=== PATIENT | female | born 1950 | race Caucasian/White ===

== ENCOUNTER → 2018-11-05 10:15 | Outpatient (BNVA) | payer MEDICARE, BC, SELFPAY | PROVIDERS: PCP Nurse Practitioner Family; Referring Provider Family Medicine; Visit Provider Orthopaedic Surgery | DX: M72.9 Fibroblastic disorder, unspecified (principal); E11.9 Type 2 diabetes mellitus without complications | CPT/HCPCS: 99213 ==

== ENCOUNTER 2019-11-19 04:33 | Outpatient (CLI) | payer MEDICARE, BC, SELFPAY ==
--- NOTE | 2019-11-19 07:40 | DI.MAMMO_ITS ---
EXAM: MG MAMMO DIAGNOSTIC UNI CLINICAL HISTORY: L breast lump 3 o'clock, hx breast CA, hx breast ca, N63.0, Z85.3. TECHNIQUE: Craniocaudal and mediolateral oblique Full Field Digital Mammography views with Computer Aided Diagnosis followed by Tomosynthesis. COMPARISON: No exams were available for comparison FINDINGS: Left mammography/Tomosynthesis: The patient is status post mastectomy and left breast reconstruction. Masses/Architectural Distortion: None seen. Microcalcifictions: A 4 mm benign coarse calcification is seen in the left reconstructed breast which corresponds to the palpable abnormality. No suspicious microcalcifications are seen. Skin Thickening/Nipple Retraction: None. IMPRESSION: 1. No evidence of malignancy is noted. 2. The patient is status post mastectomy and left breast reconstruction. 3. The palpable abnormality corresponds to a 4 mm benign calcification in the reconstructed left tam[address]. 4. The findings were discussed with the patient on the date of the examination. BI-RADS Category 1 - Negative Breast Density - Category A - Almost entirely fatty A negative radiographic report should not delay biopsy if a dominant or clinically suspicious mass is present. Up to ten percent of cancers are not identified on mammography. A negative report may reinforce clinical impression. Adenosis and dense breasts may obscure an underlying neoplasm. False positive reports average 6 to 10%. Patient will receive a letter notifying them of these results.
== END 2019-11-19 04:53 ==
PROVIDERS: PCP Nurse Practitioner Family; Visit Provider Nurse Practitioner Family
DX: N63.20 Unspecified lump in the left breast, unspecified quadrant (principal); Z85.3 Personal history of malignant neoplasm of breast
CPT/HCPCS: 77061; 77065; G0279

== ENCOUNTER 2021-10-10 04:15 | Outpatient (CLI) | payer MEDICARE, SELFPAY ==
[2021-10-10 08:36] LABS: Calculated LDL 54 mg/dL (<100); Cholesterol 123 mg/dL (<200); HDL Cholesterol 58 mg/dL (40-60); Triglyceride 55 mg/dL (<150)
[2021-10-10 09:00] LABS: COMMENT (LAB VIEW ONLY) 40.16 mg/dL; Microalb ug/mg Crea 21.7 ug/mg Cr
== END 2021-10-10 04:16 | disposition home or self-care (01) ==
LOC: LBO 04:15
PROVIDERS: PCP Nurse Practitioner Family; Visit Provider Nurse Practitioner Family
DX: E11.9 Type 2 diabetes mellitus without complications (principal); E78.5 Hyperlipidemia, unspecified
CPT/HCPCS: 36415; 80061; 82043; 82570

== ENCOUNTER 2021-11-24 10:18 | Outpatient (CLI) | payer MEDICARE, SELFPAY ==
--- NOTE | 2021-11-24 10:15 | RT.EKG_ITS ---
APPROVED REPORT Exam: Resting ECG Reason for Exam: Shortness of breath Patient Location: O HR:58 bpm ECG Measurements Heart Rate 58 AXIS AL 216 P 62 QRSd 103 QRS 76 QT 416 T 57 QTc 409 Conclusion Sinus rhythm...normal P axis, V-rate 50- 99 Borderline prolonged AL interval...AL >212, V-rate 50- 90 Probable left atrial enlargement...P >50mS, <-0.10mV V1
== END 2021-11-24 10:19 | disposition home or self-care (01) ==
PROVIDERS: PCP Nurse Practitioner Family; Visit Provider Nurse Practitioner Family
DX: R06.02 Shortness of breath (principal)
CPT/HCPCS: 93010

== ENCOUNTER 2021-11-25 01:59 | Outpatient (CLI) | payer MEDICARE, SELFPAY ==
[2021-11-25 09:31] LABS: Abs Immature Grans 0.01 10^3/uL (0.0-0.06); Absolute Basophil Count 0.04 10^3/uL (0.0-0.2); Absolute Eosinophil Count 0.56 10^3/uL (0.0-0.7); Absolute Lymphocyte Count 1.65 10^3/uL (1.2-3.4); Absolute Monocyte Count 0.38 10^3/uL (0.1-0.8); Absolute Neutrophil Count 2.74 10^3/uL (1.2-6.7); Basophils % 0.7; Eosinophils % 10.4; HCT 44.4 % (36.0-46.0); HGB 14.9 g/dL (11.2-15.7); Immature Grans % 0.2; Lymphocytes % 30.7; MCH 29.2 pg (27.0-33.0); MCHC 33.6 % (32.0-36.0); MCV 87 fL (80-95); MPV 10.5 fL (8.0-11.0); Monocytes % 7.1; Neutrophils % 50.9; Platelet Count 165 10^3/uL (130-400); RDW 12.3 % (11.7-14.6); RDW-SD 39.6 fL; WBC 5.38 10^3/uL (4.4-10.8)
[2021-11-25 11:11] LABS: ALT 17 U/L (14-59); AST 19 U/L (15-37); Albumin 3.7 g/dL (3.4-5.0); Alkaline Phosphatase 41 U/L (46-116); Anion Gap 5.4 mmol/L (3-11); BUN 15 mg/dL (7-18); Bilirubin, Total 0.5 mg/dL (0.2-1.0); CO2 29.6 mmol/L (21.0-32.0); CREATININE 0.9 mg/dL (0.55-1.02); Calcium 9.3 mg/dL (8.5-10.1); Chloride 95 mmol/L (98-107); Glucose 164 mg/dL (74-106); Sodium 130 mmol/L (136-145); Total Protein 7.5 g/dL (6.4-8.2)
== END 2021-11-25 02:00 | disposition home or self-care (01) ==
LOC: LBO 01:59
PROVIDERS: PCP Nurse Practitioner Family; Visit Provider Nurse Practitioner Family
DX: R06.09 Other forms of dyspnea (principal); R42 Dizziness and giddiness
CPT/HCPCS: 36415; 80053; 84443; 85025

== ENCOUNTER 2021-12-01 04:10 | Outpatient (CLI) | payer MEDICARE, SELFPAY ==
[2021-12-01 09:09] LABS: Anion Gap 6.7 mmol/L (3-11); BUN 20 mg/dL (7-18); CO2 30.3 mmol/L (21.0-32.0); CREATININE 0.8 mg/dL (0.55-1.02); Calcium 9.5 mg/dL (8.5-10.1); Chloride 100 mmol/L (98-107); Estimated GFR 79.71 (mL/min/1.73m2); Glucose 122 mg/dL (74-106); Potassium 4.4 mmol/L (3.5-5.1); Sodium 137 mmol/L (136-145)
[2021-12-01 18:06] LABS: Osmolality Serum 290 mOsm/kg (275-295)
== END 2021-12-01 04:11 | disposition home or self-care (01) ==
LOC: LBO 04:10
PROVIDERS: PCP Nurse Practitioner Family; Visit Provider Nurse Practitioner Family
DX: E87.1 Hypo-osmolality and hyponatremia (principal)
CPT/HCPCS: 36415; 80048; 83930

== ENCOUNTER 2021-12-02 02:02 | Outpatient (RCR) | payer MEDICARE, SELFPAY ==
--- NOTE | 2021-12-02 09:45 | HOLTER_ITS ---
APPROVED REPORT Conclusion This is a 48-hour Holter monitor ordered for syncope Primary rhythm was sinus with an average heart rate of 68. Minimum was 55, maximum 97 There are very rare ventricular ectopic beats. There was no ventricular tachycardia. There was one 3 beat accelerated idioventricular rhythm There were rare atrial premature beats Several self-limited atrial runs occurred, the longest of these was 6 beats in duration There was no atrial fibrillation, no high-grade AV block, no pauses greater than 3 seconds There were no apparent patient symptoms
== END 2021-12-16 23:59 | disposition home or self-care (01) ==
LOC: RT 02:02
PROVIDERS: PCP Nurse Practitioner Family; Visit Provider Nurse Practitioner Family
DX: I49.8 Other specified cardiac arrhythmias (principal); I25.10 Atherosclerotic heart disease of native coronary artery without angina pectoris; R42 Dizziness and giddiness
CPT/HCPCS: 93227; 93225; 93226

== ENCOUNTER → 2021-12-13 00:52 | Outpatient (CLI) | payer MEDICARE, SELFPAY ==
--- NOTE | 2021-12-13 06:15 | ETT_ITS ---
APPROVED REPORT Exam: Exercise Treadmill Patient Location: Out-Patient Room/Bed: Stress Nurse: Tara Phillips RN Ordering Provider:JACEY GORDON, Contact Number: [phone] BMI: 0 Medical History Medical History: HTN, DM II, HLD, Hypothyroidism, Depression, Anxiety, Asthma, CAD, elevated BMI Cardiac Medications: Rosuvastatin, Pantoprazole, Metformin, Isosorbide mononitrate, Empagliflozin, Du laglutide, Aspirin, Albuterol sulfate, Trulicity, Levothyroxine, Allergies: Shellfish, Codeine, Wheat, Amlodipine, Milk, Dust, Cats Cardiac Risk Factors: HTN, Hyperlipidemia, DM, FHX of CAD, Asthma, CVD Previous Cardiac Procedures: CABG (2017) Pretest Chest Pain Characteristics: No chest pain Exercise History: Physically active Physical Disabilities: None Lung Sounds: Clear to auscultation Heart Sounds: Regular Stress Test Details Test: Exercise stress testing was performed using a Carlos protocol. Rest Stress HR Resting HR Supine: 62 bpm Max Heart Rate (APMHR): 151 bpm Resting HR Standin bpm Target HR (85% APMHR): 128 bpm Max HR Achieved: 92 bpm % of APMHR: 60 Recovery HR: 58 bpm HR response to stress: Blunted HR response to stress Comment: Nondiagnositic; chronotropic incompetence BP Resting BP Supine: 162/70 mmHg Resting BP Standin/66 mmHg Max BP: 168/66 mmHg Recovery BP: 168/66 mmHg BP response to stress: Normal blood pressure response to stress. ECG Resting ECG: Sinus Rhythm, 2nd degree AV block (Mobitz I) Ectopy: None Stress ECnd degree AV block (Mobitz I) ST Change: No significant ST segment changes noted Arrhythmia: rare PVC Recovery ECG: Sinus Rhythm, 2nd degree AV block (Mobitz I) Recovery ST Change: No significant ST segment changes noted Recovery Arrhythmia: PVCs Clinical Reason for Termination: Fatigue Stress Symptoms: General Fatigue, Lightheadedness Exercise duration: 7 min39 sec Highest Stage Reached: Stage 3: 3.4 mph at 14% grade. Exercise capacity: 9.6 METs Krishnamurthy Treadmill Score: 7.7 Rate Pressure Product: [id number] Stress ECG Conclusion 1. Resting electrocardiogram showed first-degree AV block, IVCD, minor ST abnormalities 2. Patient exercised on the Carlos protocol and completed a workload of 9.6 METS 3. Normal blood pressure response to exercise 4. Blunted heart rate response to exercise. The patient developed Mobitz 1 second-degree AV block, s ometimes 2-1, with a peak heart rate achieved of 60% of predicted for age 5. Electrocardiographic portion of the test was nondiagnostic due to inadequate heart rate 6. There were rare PVCs seen Krishnamurthy Treadmill Score is 7.7 which is Low risk. Stress Test Summary STAGE Time (mins) Speed (mph) Grade (%) HR BP SpO2 SYMPTOMS METS Supine 62 162/70 Standing 70 134/66 98 1 3 1.7 10 54 132/62 98 slight lightheadedness 4.5 2 6 2.5 12 63 142/70 no change to lightheadedness 7 1 min recovery 58 144/72 98 mild lightheadedness 3 min recovery 46 168/62 6 min recovery 58 168/66 lightheadedness resolved.
--- NOTE | 2021-12-13 06:30 | DI.RAD_ITS ---
Exam(s) XR CHEST 2V PA LATERAL EXAM: XR CHEST 2V PA LATERAL CLINICAL HISTORY: r/o acute cardiopulm abnormality,dizziness,dyspnea on exertion,r06.09,r42 TECHNIQUE: 2D digital imaging was performed of the chest. Two images were obtained. PA and lateral views were obtained. COMPARISON: No exams were available for comparison FINDINGS: MEDIASTINUM: Normal. HEART: Normal. PULMONARY VASCULATURE: Normal. LUNGS: Clear. PLEURAL SPACE: No pleural effusion or pneumothorax. BONE:Within normal limits for the patient's age. Sternal wires are in place. OTHER FINDINGS:Normal. IMPRESSION: No acute pulmonary findings. DATA REPOSITORY: RADIATION DOSE DELIVERED:
== END ==
PROVIDERS: PCP Nurse Practitioner Family; Visit Provider Nurse Practitioner Family
DX: I25.10 Atherosclerotic heart disease of native coronary artery without angina pectoris (principal); R06.09 Other forms of dyspnea; R42 Dizziness and giddiness
CPT/HCPCS: 93016; 93018; 71046; 93017

== ENCOUNTER → 2021-12-27 01:16 | Outpatient (CLI) | payer MEDICARE, SELFPAY ==
--- NOTE | 2021-12-27 06:30 | DI.NM_ITS ---
APPROVED REPORT Exam: Pharmacologic paired w/ low level exercise Patient Location: Out-Patient Room/Bed: Stress Nurse: Tara Phillips RN Ordering Provider:JACEY EVAN, Contact Number: [phone] BMI: 26.60 Baseline Rhythm: Sinus Rhythm Indications: NON DIAGNOSTIC ETT, WILLIS, CAD Medical History Medical History: Hyponatremia, Dyspespia, HTN, DM II, HLD, Asthma, Depression w/ anxiety, CAD Cardiac Medications: Rosuvastatin, Pantoprazole, Metformin, Isosorbide mononitrate, Empagliflozin, Du loglutide, Aspirin, Albuterol sulfate Allergies: Amlodipine, Milk, Dust, Cats, Codeine, Shellfish, Wheat Cardiac Risk Factors: HTN, Hyperlipidemia, Diabetes (non-insulin), FHX of CAD, Asthma, CVD Previous Cardiac Procedures: CABG (01/21/17) Pretest Chest Pain Characteristics: Patient reports baseline dizziness and shortness of breath. Exercise History: Indeterminate Physical Disabilities: None Lung Sounds: Clear to auscultation Heart Sounds: Regular Stress Test Details Test: Pharmacologic stress was paired with low level exercise. Reason for pharmacologic stress test: concern for patient safety given baseline symptoms. Nuclear Acquisition: Rest Tc-99m/Stress Tc-99m 1 day Rest Isotope: Tc-99m Sestamibi. Dose: 10.2 Date: 12/27/2021 Injection Time: 0930 Stress Isotope: Tc-99m Sestamibi. Dose: 31.5 Date: 12/27/2021 Injection Time: 1115 HR Resting HR Supine: 61 bpm Max Heart Rate (APMHR): 151.303150 bpm Resting HR Standin bpm Target HR (85% APMHR): 128.657573 bpm Max HR Achieved: 84 bpm % of APMHR: 55.63 Recovery HR: 74 bpm BP Resting BP Supine: 138/62 mmHg Resting BP Standin/60 mmHg Max BP: 138/62 mmHg Recovery BP: 132/60 mmHg ECG Resting ECG: Sinus Rhythm Ectopy: None Stress ECnd degree AV block (Mobitz I), Sinus rhythm ST Change: No significant ST segment changes noted Recovery ECnd degree AV block (Mobitz II), Sinus rhythm Clinical Stress Symptoms: Headache,, Dyspnea Rate Pressure Product: [id number] Stress ECG Conclusion 1. Resting electrocardiogram shows sinus rhythm first-degree AV block IVCD minor ST depression 2. Patient underwent testing using a combination of regadenoson and low-level exercise 3. Peak heart rate achieved was 55% of predicted for age 4. 2-1 AV block was noted, most likely Mobitz 1 5. The electrocardiographic portion of the test was nondiagnostic due to inadequate heart rate 6. See MPI report Stress Test Summary STAGE HR BP SpO2 Symptoms NOTES Supine 61 138/62 97 Standing 70 138/60 1 min post Lexiscan injection 79 128/60 3 min post Lexiscan injection 55 130/50 6 min post Lexiscan injection 45 112/48 9 min post Lexiscan injection 74 132/60 MPI Conclusion Normal myocardial perfusion without evidence ischemia or prior infarction EF 73%, normal wall motion Radiologist Interpretation Radiologist Interpretation by: Damian Gaines MD Interpretation Date/Time: 12/27/2021 16:58:52
[2021-12-27] MEDS: Regadenoson 0.4 MG/5 ML SYR IVP (11:05)
== END ==
PROVIDERS: PCP Nurse Practitioner Family; Visit Provider Nurse Practitioner Family
DX: I25.10 Atherosclerotic heart disease of native coronary artery without angina pectoris (principal); R06.09 Other forms of dyspnea
CPT/HCPCS: 78452; 93016; 93018; 93017; J2785

== ENCOUNTER 2021-12-29 08:55 | Outpatient (CLI) | payer MEDICARE, SELFPAY | END 2021-12-29 08:56 | disposition home or self-care (01) | PROVIDERS: PCP Nurse Practitioner Family; Visit Provider Nurse Practitioner Family | DX: R00.2 Palpitations (principal) | CPT/HCPCS: 93246 ==

== ENCOUNTER 2022-02-02 14:01 | Outpatient (CLI) | payer MEDICARE, SELFPAY ==
--- NOTE | 2022-02-02 14:00 | RT.EKG_ITS ---
APPROVED REPORT Exam: Resting ECG Reason for Exam: rhythm cause for dizziness? recent pacemaker place Patient Location: O HR:71 bpm ECG Measurements Heart Rate 71 AXIS AK 169 P 35 QRSd 92 QRS 21 QT 392 T 35 QTc 426 Conclusion Sinus rhythm...normal P axis, V-rate 50- 99 Normal Electrocardiogram
== END 2022-02-02 14:02 | disposition home or self-care (01) ==
LOC: DI.KIM 14:02
PROVIDERS: PCP Nurse Practitioner Family; Visit Provider Nurse Practitioner Family
DX: R42 Dizziness and giddiness (principal)
CPT/HCPCS: 93010

== ENCOUNTER 2022-07-17 08:45 | Outpatient (CLI) | payer MEDICARE, SELFPAY ==
--- NOTE | 2022-07-17 08:45 | RT.EKG_ITS ---
APPROVED REPORT Exam: Resting ECG Reason for Exam: CAD, pacemaker Patient Location: O HR:73 bpm ECG Measurements Heart Rate 73 AXIS MN 187 P 51 QRSd 133 QRS 34 QT 425 T 83 QTc 469 Conclusion Sinus rhythm...normal P axis, V-rate 50- 99 Probable left atrial enlargement...P >50mS, <-0.10mV V1 Left bundle branch block...QRSd>120, broad/notched R
== END 2022-07-17 08:46 | disposition home or self-care (01) ==
LOC: DI.CARD 08:45
PROVIDERS: PCP Nurse Practitioner Family; Visit Provider Internal Medicine Cardiovascular Disease
DX: I25.10 Atherosclerotic heart disease of native coronary artery without angina pectoris (principal); Z95.0 Presence of cardiac pacemaker
CPT/HCPCS: 93010

== ENCOUNTER → 2022-07-17 12:49 | Outpatient (BNVA) | payer MEDICARE, SELFPAY | PROVIDERS: PCP Nurse Practitioner Family; Referring Provider Nurse Practitioner Family; Visit Provider Internal Medicine Cardiovascular Disease | DX: I25.10 Atherosclerotic heart disease of native coronary artery without angina pectoris (principal); Z95.5 Presence of coronary angioplasty implant and graft; Z95.0 Presence of cardiac pacemaker | CPT/HCPCS: 93005; 99203 ==

== ENCOUNTER 2022-09-19 14:38 | Outpatient (REF) | payer MEDICARE, SELFPAY | END 2022-09-19 14:39 | disposition home or self-care (01) | LOC: LBN 14:38 | PROVIDERS: PCP Nurse Practitioner Family; Visit Provider Nurse Practitioner Family | DX: R39.15 Urgency of urination (principal) | CPT/HCPCS: 87086 ==

== ENCOUNTER 2022-09-25 15:10 | Outpatient (REF) | payer MEDICARE, SELFPAY | END 2022-09-25 15:11 | disposition home or self-care (01) | LOC: LBN 15:10 | PROVIDERS: PCP Nurse Practitioner Family; Visit Provider Nurse Practitioner Family | DX: N90.89 Other specified noninflammatory disorders of vulva and perineum (principal); R39.15 Urgency of urination | CPT/HCPCS: 87086; 87480; 87510; 87660 ==

== ENCOUNTER → 2023-02-06 12:51 | Outpatient (BNVA) | payer MEDICARE, SELFPAY | PROVIDERS: PCP Nurse Practitioner Family; Referring Provider Nurse Practitioner Family; Visit Provider Urology | DX: R32 Unspecified urinary incontinence (principal); N32.81 Overactive bladder | CPT/HCPCS: 51798; 81002; 99215 ==

== ENCOUNTER → 2023-07-16 12:45 | Outpatient (BNVA) | payer MEDICARE, SELFPAY | PROVIDERS: PCP Nurse Practitioner Adult Health; Referring Provider Nurse Practitioner Family; Visit Provider Internal Medicine Cardiovascular Disease | DX: Z95.0 Presence of cardiac pacemaker (principal); I25.10 Atherosclerotic heart disease of native coronary artery without angina pectoris | CPT/HCPCS: 99213 ==

== ENCOUNTER → 2023-10-31 13:00 | Outpatient (BNVA) | payer MEDICARE, SELFPAY | PROVIDERS: PCP Nurse Practitioner Adult Health; Referring Provider Nurse Practitioner Adult Health; Visit Provider Student in an Organized Health Care Education/Training Program | DX: M77.01 Medial epicondylitis, right elbow (principal); E11.9 Type 2 diabetes mellitus without complications; I10 Essential (primary) hypertension; E03.9 Hypothyroidism, unspecified; Z95.0 Presence of cardiac pacemaker | CPT/HCPCS: 99213 ==

== ENCOUNTER → 2024-02-04 15:14 | Outpatient (BNVA) | payer MEDICARE, SELFPAY | PROVIDERS: PCP Nurse Practitioner Adult Health; Referring Provider Nurse Practitioner Adult Health; Visit Provider Urology | DX: N32.81 Overactive bladder (principal); R32 Unspecified urinary incontinence | CPT/HCPCS: 99213 ==

== ENCOUNTER 2024-07-14 07:50 | Outpatient (CLI) | payer MEDICARE, SELFPAY ==
--- NOTE | 2024-07-14 07:45 | RT.EKG_ITS ---
APPROVED REPORT Exam: Resting ECG Reason for Exam: CAD Patient Location: O HR:74 bpm ECG Measurements Heart Rate 74 AXIS IA 234 P 26 QRSd 157 QRS -56 QT 441 T 109 QTc 490 Conclusion Atrial-sensed ventricular-paced complexes...other complexes also detected No further analysis attempted due to paced rhythm
== END 2024-07-14 07:51 | disposition home or self-care (01) ==
LOC: DI.CARD 07:50
PROVIDERS: PCP Nurse Practitioner Adult Health; Visit Provider Registered Nurse
DX: I25.10 Atherosclerotic heart disease of native coronary artery without angina pectoris (principal); Z95.0 Presence of cardiac pacemaker; I44.1 Atrioventricular block, second degree
CPT/HCPCS: 93010

== ENCOUNTER → 2024-07-14 12:55 | Outpatient (BNVA) | payer MEDICARE, SELFPAY | PROVIDERS: PCP Nurse Practitioner Adult Health; Visit Provider Registered Nurse | DX: E11.9 Type 2 diabetes mellitus without complications (principal); I25.10 Atherosclerotic heart disease of native coronary artery without angina pectoris; Z95.0 Presence of cardiac pacemaker; I44.1 Atrioventricular block, second degree | CPT/HCPCS: 93005; 99214 ==

== ENCOUNTER 2024-12-30 08:50 | Outpatient (CLI) | payer MEDICARE, SELFPAY ==
--- NOTE | 2024-12-30 08:45 | RT.EKG_ITS ---
APPROVED REPORT Exam: Resting ECG Reason for Exam: CAD Patient Location: O HR:79 bpm ECG Measurements Heart Rate 79 AXIS VA 253 P 13 QRSd 161 QRS -48 QT 416 T 121 QTc 477 Conclusion AV paced rhythm
== END 2024-12-30 08:51 | disposition home or self-care (01) ==
LOC: DI.CARD 08:51
PROVIDERS: PCP Nurse Practitioner Adult Health; Visit Provider Internal Medicine Cardiovascular Disease
DX: I25.10 Atherosclerotic heart disease of native coronary artery without angina pectoris (principal); I44.1 Atrioventricular block, second degree
CPT/HCPCS: 93010

== ENCOUNTER → 2024-12-30 11:04 | Outpatient (BNVA) | payer MEDICARE, SELFPAY | PROVIDERS: PCP Nurse Practitioner Adult Health; Referring Provider Nurse Practitioner Adult Health; Visit Provider Internal Medicine Cardiovascular Disease | DX: R42 Dizziness and giddiness (principal); I25.10 Atherosclerotic heart disease of native coronary artery without angina pectoris; I44.1 Atrioventricular block, second degree; Z95.0 Presence of cardiac pacemaker; E03.9 Hypothyroidism, unspecified | CPT/HCPCS: 99214; 93005 ==

== ENCOUNTER 2025-02-03 03:31 | Outpatient (CLI) | payer MEDICARE, SELFPAY ==
[2025-02-03 13:49] LABS: Microalb ug/mg Crea 36.3 ug/mg Cr
[2025-02-03 14:29] LABS: Hemoglobin A1C 6.2 % (<5.7)
[2025-02-03 15:45] LABS: TSH (W/Ref FT4) 6.97 uIU/mL (0.55-4.78)
[2025-02-03 16:24] LABS: ALT 7 U/L (10-49); AST 19 U/L (<34); Albumin 4.5 g/dL (3.4-5.0); Alkaline Phosphatase 41 U/L (46-116); Anion Gap 8.8 mmol/L (3-11); BUN 21 mg/dL (9-23); Bilirubin, Total 0.60 mg/dL (0.2-1.2); CO2 27.2 mmol/L (20.0-31.0); Calcium 9.3 mg/dL (8.3-10.6); Chloride 103 mmol/L (98-107); Cholesterol 166 mg/dL (<200); Glucose 120 mg/dL (74-106); HDL Cholesterol 73 mg/dL (>40); Potassium 4.0 mmol/L (3.5-5.1); Sodium 139 mmol/L (136-145); Total Protein 7.4 g/dL (5.7-8.2); Vitamin B12 365 pg/mL (211-911)
== END 2025-02-03 03:32 | disposition home or self-care (01) ==
LOC: LBO 03:31
PROVIDERS: PCP Nurse Practitioner Adult Health; Visit Provider Nurse Practitioner Adult Health
DX: I25.10 Atherosclerotic heart disease of native coronary artery without angina pectoris (principal); E78.5 Hyperlipidemia, unspecified; E11.9 Type 2 diabetes mellitus without complications; I10 Essential (primary) hypertension; E03.9 Hypothyroidism, unspecified; N32.81 Overactive bladder; E11.3291 Type 2 diabetes mellitus with mild nonproliferative diabetic retinopathy without macular edema, right eye
CPT/HCPCS: 36415; 80053; 80061; 82043; 82570; 82607; 83036; 84439; 84443